=== PATIENT | female | born 1965 | race Caucasian/White ===

== ENCOUNTER 2022-08-05 10:22 | Outpatient (CLI) | payer OTHER, SELFPAY ==
[2022-08-05 14:13] LABS: Uric Acid* 10.6 mg/dL (2.2-8.4)
== END 2022-08-05 10:23 | disposition home or self-care (01) ==
PROVIDERS: PCP Family Medicine; Visit Provider Family Medicine
DX: M79.672 Pain in left foot (principal)
CPT/HCPCS: 84550